=== PATIENT | male | born 1940 | race African-American/Black ===

== ENCOUNTER 2016-12-11 04:51 | Inpatient (IN) | payer MEDICARE, MEDICAID ==
[~2016-12-11] VITALS: Ht 172.7 cm; Wt 65.5 kg
[2016-12-11] VITALS (16 sets, daily range): BP systolic 114–224; BP diastolic 68–117
[~2016-12-11 04:51] MED LIST: AMLO1CAP PO; ASPI325T2 PO; CARV6.2548 PO; CINA30 PO; CLON0.3T PO; DIPH25CA83 PO; FURO80TA3 PO; HYDR-4134 PO; HYDR-519 PO; PANT40TA4 PO
[2016-12-11 05:44] LABS: BASOPHILS % 0.6 % (0.0-2.0); EOSINOPHILS % 1.2 % (0.0-5.0); HEMOGLOBIN. 9.9 g/dL (14.0-18.0); MEAN CORPUSCULAR HEMOGLOBIN 28.2 pg (28.0-32.0); MEAN CORPUSCULAR HGB CONC 31.9 g/dL (31.0-37.0); MEAN CORPUSCULAR VOLUME 88.3 fL (80.0-94.0); MEAN PLATELET VOLUME 8.7 fl (7.4-10.4); MONOCYTES % 6.1 % (2.0-8.0); NEUTROPHILS % 82.1 % (40.0-76.0); PLATELET 283 x1000/uL (130-400); RED BLOOD CELL COUNT 3.51 mill/uL (4.7-6.1); RED CELL DISTRIBUTION WIDTH 17.4 % (11.6-14.6); WHITE BLOOD COUNT 6.2 x1000/uL (4.5-11.0)
[2016-12-11 06:03] LABS: CALCIUM 8.9 mg/dL (8.5-10.1); TROPONIN I 0.1 ng/mL (0.00-0.04)
[2016-12-11] MEDS ORDERED: DIPHENHYDRAMINE 50MG/ML VIAL IV ONE (07:15)
[2016-12-11] MEDS ORDERED: DIPHENHYDRAMINE 50MG/ML VIAL ONE (07:22)
[2016-12-11] MEDS ORDERED: IPRATROPIUM/ALBUTEROL 0.5-3(2.5)MG/3ML NEB HHN PRN (07:45)
[2016-12-11 08:08] LABS: BG BASE EXCESS -6.6 mmol/L (-2.0-2.0); BG CARBOXYHEMOGLOBIN 0.7 % (0.5-1.5); BG DEOXYHEMOGLOBIN 10.7 % (0.0-5.0); BG FRACTION INSPIRED OXYGEN 44; BG METHEMOGLOBIN 0.2 % (0.0-1.5); BG OXYGEN SATURATION 89.2 % (92.0-98.5); BG OXYHEMOGLOBIN 88.4 % (94.0-97.0); BG PCO2 27.7 mmHg (35.0-45.0); BG PH 7.405 (7.350-7.450); BG PO2 62.1 mmHg (75.0-100.0); BG SAMPLE SITE RIGHT BRACHIAL; BG TOTAL HEMOGLOBIN 10.1 g/dL (12.0-18.0); BG VENT MODE NASAL CANNULA
[2016-12-11] MEDS ORDERED: GUAIFENESIN 200MG/10ML SUGAR FREE UDC PO PRN (10:00)
[2016-12-11] MEDS ORDERED: DOCUSATE SODIUM 100MG CAPSULE PO PRN (10:00)
[2016-12-11] MEDS: FUROSEMIDE 80MG TABLET PO SCH (10:00)
[2016-12-11] MEDS ORDERED: ACETAMINOPHEN 325MG TABLET PO PRN (10:00)
[2016-12-11] MEDS: AMLODIPINE 10MG TABLET PO SCH (10:00)
[2016-12-11] MEDS ORDERED: IPRATROPIUM/ALBUTEROL 0.5-3(2.5)MG/3ML NEB INH PRN (10:00)
[2016-12-11] MEDS: DIPHENHYDRAMINE 50MG/ML VIAL IV PRN ×4 (10:46→22:59)
[2016-12-11] MEDS: HYDRALAZINE HCL 50MG TABLET PO SCH ×2 (13:53→21:30)
[2016-12-11] MEDS: ENOXAPARIN 30MG/0.3ML SYR SUBCUT SCH (13:55)
[2016-12-11] MEDS: CLONIDINE 0.1MG TABLET PO PRN ×2 (13:55→18:49)
[2016-12-11] MEDS: BENAZEPRIL 20MG TABLET PO SCH (17:09)
[2016-12-11] MEDS: ONDANSETRON HCL 4MG/2ML VIAL IV PRN (20:11)
[2016-12-11] MEDS: HYDROCODONE/ACETAMINOPHEN 5/325MG TABLET PO PRN (20:12)
[2016-12-11] MEDS: CARVEDILOL 12.5MG TABLET PO SCH (20:13)
[2016-12-11] MEDS: IPRATROPIUM/ALBUTEROL 0.5-3(2.5)MG/3ML NEB HHN SCH (20:50)
[2016-12-11] MEDS ORDERED: CARVEDILOL 6.25 MG TABLET PO SCH (21:00)
[2016-12-12] VITALS (17 sets, daily range): BP systolic 136–188; BP diastolic 57–101
[2016-12-12] MEDS: IPRATROPIUM/ALBUTEROL 0.5-3(2.5)MG/3ML NEB HHN SCH ×4 (00:29→20:55)
[2016-12-12] MEDS: CLONIDINE 0.1MG TABLET PO PRN (01:56)
[2016-12-12] MEDS: HYDRALAZINE HCL 50MG TABLET PO SCH ×3 (05:17→20:13)
[2016-12-12] MEDS: DIPHENHYDRAMINE 50MG/ML VIAL IV PRN (06:07)
[2016-12-12] MEDS: ONDANSETRON HCL 4MG/2ML VIAL IV PRN (06:07)
[2016-12-12 06:42] LABS: BASOPHILS % 0.9 % (0.0-2.0); EOSINOPHILS % 3.2 % (0.0-5.0); LYMPHOCYTES % 14.7 % (20.0-50.0); MEAN CORPUSCULAR HEMOGLOBIN 28.5 pg (28.0-32.0); MEAN CORPUSCULAR HGB CONC 32.2 g/dL (31.0-37.0); MEAN CORPUSCULAR VOLUME 88.5 fL (80.0-94.0); MEAN PLATELET VOLUME 8.6 fl (7.4-10.4); MONOCYTES % 9.1 % (2.0-8.0); NEUTROPHILS % 72.1 % (40.0-76.0); PLATELET 222 x1000/uL (130-400); RED BLOOD CELL COUNT 3.16 mill/uL (4.7-6.1); RED CELL DISTRIBUTION WIDTH 17.2 % (11.6-14.6); WHITE BLOOD COUNT 4.5 x1000/uL (4.5-11.0)
[2016-12-12] MEDS: HYDROCODONE/ACETAMINOPHEN 5/325MG TABLET PO PRN (06:53)
[2016-12-12 07:49] LABS: ALANINE AMINOTRANSFERASE 8 IU/L (13-61); ALBUMIN 2.8 g/dL (3.4-5.0); ANION GAP 17; CALCIUM 8.9 mg/dL (8.5-10.1); CARBON DIOXIDE 25 mEq/L (21-32); CHLORIDE 104 mEq/L (98-107); INDEX HEMOLYSI 1 (1-3); INDEX ICTERIC 1 (1-4); INDEX LIPEMIC 1 (1-3); UREA NITROGEN BLOOD 55 mg/dL (7-21); eGFR 8 mL/min (>60)
[2016-12-12] MEDS: CARVEDILOL 12.5MG TABLET PO SCH ×2 (09:00→20:13)
[2016-12-12] MEDS: BENAZEPRIL 20MG TABLET PO SCH ×2 (09:00→17:01)
[2016-12-12] MEDS: AMLODIPINE 10MG TABLET PO SCH (09:00)
[2016-12-12] MEDS: FUROSEMIDE 80MG TABLET PO SCH (09:00)
[2016-12-12] MEDS: FOLIC ACID/VITAMIN B COMP W-C TABLET PO SCH (09:22)
[2016-12-12] MEDS: ENOXAPARIN 30MG/0.3ML SYR SUBCUT SCH (09:22)
[2016-12-13] VITALS (13 sets, daily range): BP systolic 83–188; BP diastolic 58–88
[2016-12-13] MEDS: IPRATROPIUM/ALBUTEROL 0.5-3(2.5)MG/3ML NEB HHN SCH ×4 (02:31→21:23)
[2016-12-13] MEDS: HYDRALAZINE HCL 50MG TABLET PO SCH ×3 (06:04→21:00)
[2016-12-13 06:21] LABS: CALCIUM 8.6 mg/dL (8.5-10.1)
[2016-12-13 06:42] LABS: BASOPHILS % 0.9 % (0.0-2.0); HEMATOCRIT. 26.8 % (42.0-52.0); HEMOGLOBIN. 8.6 g/dL (14.0-18.0); LYMPHOCYTES % 13.6 % (20.0-50.0); MEAN CORPUSCULAR HEMOGLOBIN 28.5 pg (28.0-32.0); MEAN CORPUSCULAR HGB CONC 31.9 g/dL (31.0-37.0); MEAN CORPUSCULAR VOLUME 89.4 fL (80.0-94.0); MEAN PLATELET VOLUME 8.5 fl (7.4-10.4); MONOCYTES % 10.9 % (2.0-8.0); NEUTROPHILS % 69.6 % (40.0-76.0); PLATELET 198 x1000/uL (130-400); RED CELL DISTRIBUTION WIDTH 17.2 % (11.6-14.6); WHITE BLOOD COUNT 5.6 x1000/uL (4.5-11.0)
[2016-12-13] MEDS: DIPHENHYDRAMINE 50MG/ML VIAL IV PRN (06:48)
[2016-12-13] MEDS: ENOXAPARIN 30MG/0.3ML SYR SUBCUT SCH (08:47)
[2016-12-13] MEDS: FOLIC ACID/VITAMIN B COMP W-C TABLET PO SCH (08:47)
[2016-12-13] MEDS: FUROSEMIDE 80MG TABLET PO SCH (08:47)
[2016-12-13] MEDS: HYDROCODONE/ACETAMINOPHEN 5/325MG TABLET PO PRN (08:48)
[2016-12-13] MEDS: CARVEDILOL 12.5MG TABLET PO SCH ×2 (08:48→20:57)
[2016-12-13] MEDS: AMLODIPINE 10MG TABLET PO SCH (08:48)
[2016-12-13] MEDS: BENAZEPRIL 20MG TABLET PO SCH ×2 (08:48→18:05)
[2016-12-13] MEDS: CLONIDINE 0.1MG TABLET PO PRN ×2 (12:22→23:49)
[2016-12-13] MEDS: ONDANSETRON HCL 4MG/2ML VIAL IV PRN (12:38)
[2016-12-14] VITALS (13 sets, daily range): BP systolic 115–191; BP diastolic 54–84
[2016-12-14] MEDS: IPRATROPIUM/ALBUTEROL 0.5-3(2.5)MG/3ML NEB HHN SCH ×5 (02:09→20:06)
[2016-12-14] MEDS ORDERED: HYDRALAZINE HCL 50MG TABLET PO SCH (06:00)
[2016-12-14] MEDS: HYDRALAZINE HCL 25MG TABLET PO SCH ×3 (06:44→21:23)
[2016-12-14] MEDS: CARVEDILOL 12.5MG TABLET PO SCH ×2 (08:07→21:23)
[2016-12-14] MEDS: BENAZEPRIL 20MG TABLET PO SCH ×2 (08:08→16:37)
[2016-12-14] MEDS: AMLODIPINE 10MG TABLET PO SCH (08:08)
[2016-12-14] MEDS: FUROSEMIDE 40MG TABLET PO SCH (08:08)
[2016-12-14] MEDS: ENOXAPARIN 30MG/0.3ML SYR SUBCUT SCH (08:43)
[2016-12-14] MEDS: FOLIC ACID/VITAMIN B COMP W-C TABLET PO SCH (08:43)
[2016-12-14] MEDS: DIPHENHYDRAMINE 50MG/ML VIAL IV PRN ×2 (08:52→17:20)
[2016-12-14] MEDS ORDERED: FUROSEMIDE 80MG TABLET PO SCH (10:00)
[2016-12-14] MEDS: CLONIDINE 0.1MG TABLET PO PRN (17:20)
[2016-12-15] VITALS (14 sets, daily range): BP systolic 143–189; BP diastolic 57–80
[2016-12-15] MEDS: CLONIDINE 0.1MG TABLET PO PRN (00:20)
[2016-12-15] MEDS: IPRATROPIUM/ALBUTEROL 0.5-3(2.5)MG/3ML NEB HHN SCH ×3 (02:10→14:41)
[2016-12-15] MEDS: HYDRALAZINE HCL 25MG TABLET PO SCH ×2 (05:49→13:34)
[2016-12-15] MEDS: AMLODIPINE 10MG TABLET PO SCH (08:43)
[2016-12-15] MEDS: FOLIC ACID/VITAMIN B COMP W-C TABLET PO SCH (08:43)
[2016-12-15] MEDS: FUROSEMIDE 40MG TABLET PO SCH (08:44)
[2016-12-15] MEDS: BENAZEPRIL 20MG TABLET PO SCH ×2 (08:44→17:17)
[2016-12-15] MEDS: HYDROCODONE/ACETAMINOPHEN 5/325MG TABLET PO PRN ×2 (08:44→15:59)
[2016-12-15] MEDS: CARVEDILOL 12.5MG TABLET PO SCH (08:45)
[2016-12-15] MEDS: ENOXAPARIN 30MG/0.3ML SYR SUBCUT SCH (08:45)
== END 2016-12-15 18:26 | DRG 291 ==
LOC: ER 04:55 → 5EST 07:46 → ER 09:10
PROVIDERS: ADMIT Hospitalist; ATTEND Hospitalist
PROC: 5A09357 Assistance with Respiratory Ventilation, Less than 24 Consecutive Hours, Continuous Positive Airway Pressure (ICD-10-PCS; principal; 2016-12-11)
PROC: 5A1D60Z (ICD-10-PCS; 2016-12-11)
DX: I13.2 Hypertensive heart and chronic kidney disease with heart failure and with stage 5 chronic kidney disease, or end stage renal disease (principal); I50.33 Acute on chronic diastolic (congestive) heart failure; J96.01 Acute respiratory failure with hypoxia; N18.6 End stage renal disease; E44.0 Moderate protein-calorie malnutrition; D63.1 Anemia in chronic kidney disease; I42.9 Cardiomyopathy, unspecified; E87.5 Hyperkalemia; J44.9 Chronic obstructive pulmonary disease, unspecified; H91.90 Unspecified hearing loss, unspecified ear; E11.22 Type 2 diabetes mellitus with diabetic chronic kidney disease; Z99.2 Dependence on renal dialysis; Z82.49 Family history of ischemic heart disease and other diseases of the circulatory system; Z86.73 Personal history of transient ischemic attack (TIA), and cerebral infarction without residual deficits; Z79.899 Other long term (current) drug therapy; Z79.82 Long term (current) use of aspirin; Z68.22 Body mass index [BMI] 22.0-22.9, adult; Z91.15 Patient's noncompliance with renal dialysis; Z28.21 Immunization not carried out because of patient refusal
CPT/HCPCS: 36415; 36600; 71010; 80048; 80053; 82375; 82805; 83605; 84484; 85025; 87040; 93005; 93970; 94640; 94660; 94664; 96374; 97162; 97166; 99285; A6261; J1200; J1650; J2405; J7030; J7620

== ENCOUNTER 2017-03-17 04:48 | Inpatient (IN) | payer MEDICARE, MEDICAID ==
[~2017-03-17] VITALS: Ht 182.9 cm; Wt 57.2 kg
[~2017-03-17 04:48] MED LIST changes: +ASPI-986 PO; -ASPI325T2 PO
[2017-03-17 06:22] LABS: EOSINOPHILS % 3.2 % (0.0-5.0); HEMATOCRIT. 41.5 % (42.0-52.0); HEMOGLOBIN. 13.3 g/dL (14.0-18.0); LYMPHOCYTES % 13.1 % (20.0-50.0); MEAN CORPUSCULAR HEMOGLOBIN 28.3 pg (28.0-32.0); MEAN CORPUSCULAR VOLUME 88.2 fL (80.0-94.0); MEAN PLATELET VOLUME 8.5 fl (7.4-10.4); MONOCYTES % 13.5 % (2.0-8.0); NEUTROPHILS % 69.2 % (40.0-76.0); PLATELET 236 x1000/uL (130-400); RED BLOOD CELL COUNT 4.71 mill/uL (4.7-6.1); RED CELL DISTRIBUTION WIDTH 16.5 % (11.6-14.6)
[2017-03-17 06:31] LABS: INR 1.1; PARTIAL THROMBOPLASTIN TIME 31.7 sec (24.0-34.0); PROTHROMBIN TIME 11.9 sec
[2017-03-17 06:47] LABS: CARBON DIOXIDE 23 mEq/L (21-32); CHLORIDE 98 mEq/L (98-107); TROPONIN I 0.09 ng/mL (0.00-0.04)
[2017-03-17] MEDS ORDERED: NA PHOS,M-B/NA PHOS,DI-BA ENEMA 118ML PR PRN (11:00)
[2017-03-17] MEDS ORDERED: IPRATROPIUM/ALBUTEROL 0.5-3(2.5)MG/3ML NEB INH PRN (11:00)
[2017-03-17] MEDS ORDERED: DOCUSATE SODIUM 100MG CAPSULE PO PRN (11:00)
[2017-03-17] MEDS ORDERED: MAGNESIUM/ALUMINUM HYDROXIDE/SIMETHICONE 30ML UDC PO PRN (11:00)
[2017-03-17] MEDS ORDERED: GUAIFENESIN 200MG/10ML SUGAR FREE UDC PO PRN (11:00)
[2017-03-17] MEDS ORDERED: HYDROCODONE/ACETAMINOPHEN 10/325MG TABLET PO PRN ×2 (11:00→23:00)
[2017-03-17] MEDS ORDERED: ONDANSETRON HCL 4MG/2ML VIAL IV PRN (11:00)
[2017-03-17] MEDS ORDERED: LORAZEPAM 2MG/ML CPJ IV PRN (11:00)
[2017-03-17] MEDS ORDERED: ACETAMINOPHEN 325MG TABLET PO PRN (11:00)
[2017-03-17] MEDS ORDERED: DIPHENHYDRAMINE 50MG/ML VIAL IV PRN (11:00)
[2017-03-17] MEDS: CLONIDINE 0.1MG TABLET PO PRN ×2 (12:18→18:51)
[2017-03-17] MEDS ORDERED: CEFAZOLIN 1000MG PREMIX 50 ML IV ONE (13:46)
[2017-03-17] MEDS ORDERED: FENTANYL CITRATE/PF 50MCG/ML 2ML VIAL ONE (13:47)
[2017-03-17] MEDS ORDERED: SODIUM BICARBONATE 4% (2.4MEQ) 5ML VIAL IV ONE (13:47)
[2017-03-17] MEDS ORDERED: LIDOCAINE HCL 1% 20ML VIAL (Pyxis) INJ ONE (13:47)
[2017-03-17] MEDS ORDERED: HEPARIN 1000 UNITS/ML 10ML ONE (13:47)
[2017-03-17] MEDS ORDERED: HEPARIN 1,000 UNITS PREMIX 0 ML IV ONE (13:48)
[2017-03-17] MEDS ORDERED: HYDROMORPHONE HCL/PF 2MG/ML CPJ IV PRN (15:00)
[2017-03-17 17:28] VITALS: BP 199/85
[2017-03-17 17:30] VITALS: BP 190/89
[2017-03-17 17:53] LABS: TROPONIN I 0.07 ng/mL (0.00-0.04)
[2017-03-17] MEDS: ENOXAPARIN 30MG/0.3ML SYR SUBCUT SCH (18:32)
[2017-03-17 20:00] VITALS: BP 154/77
[2017-03-17] MEDS ORDERED: AMLO10TA80 PO (22:12)
[2017-03-17] MEDS ORDERED: CINA30 PO (22:44)
[2017-03-17] MEDS ORDERED: ASPI-986 PO (22:44)
[2017-03-17] MEDS ORDERED: CLON0.3T PO (22:44)
[2017-03-17] MEDS ORDERED: DIPH25CA83 PO (22:44)
[2017-03-17] MEDS ORDERED: DIPHENHYDRAMINE 25MG CAPSULE PO SCH (22:45)
[2017-03-17] MEDS ORDERED: FURO80TA3 PO (22:51)
[2017-03-18] VITALS (7 sets, daily range): BP systolic 116–169; BP diastolic 44–89
[2017-03-18 07:21] LABS: HEMATOCRIT. 38.9 % (42.0-52.0); HEMOGLOBIN. 12.4 g/dL (14.0-18.0); MEAN CORPUSCULAR HEMOGLOBIN 27.9 pg (28.0-32.0); MEAN CORPUSCULAR VOLUME 87.3 fL (80.0-94.0); MEAN PLATELET VOLUME 8.7 fl (7.4-10.4); PLATELET 219 x1000/uL (130-400); RED BLOOD CELL COUNT 4.46 mill/uL (4.7-6.1); RED CELL DISTRIBUTION WIDTH 16.3 % (11.6-14.6)
[2017-03-18 07:28] LABS: CHLORIDE 103 mEq/L (98-107)
[2017-03-18 08:08] LABS: CARBON DIOXIDE 23 mEq/L (21-32); HDL CHOLESTEROL 43 mg/dL (40-59); LDL CHOLESTEROL 91 mg/dL (5-100); T4 FREE 1.12 ng/dL (0.76-1.46)
[2017-03-18] MEDS: HYDRALAZINE HCL 50MG TABLET PO SCH ×3 (09:00→19:53)
[2017-03-18] MEDS: CLONIDINE 0.3MG TABLET PO SCH ×3 (09:00→17:00)
[2017-03-18] MEDS: CARVEDILOL 6.25 MG TABLET PO SCH ×2 (11:06→17:00)
[2017-03-18] MEDS: ASPIRIN 325MG TABLET PO SCH (11:06)
[2017-03-18] MEDS: FUROSEMIDE 80MG TABLET PO SCH (11:07)
[2017-03-18] MEDS: PANTOPRAZOLE 40MG DR TABLET PO SCH (11:07)
[2017-03-18] MEDS: AMLODIPINE 10MG TABLET PO SCH (11:07)
[2017-03-18] MEDS: CINACALCET HCL 30MG TABLET PO SCH (11:08)
[2017-03-18 13:02] LABS: PLATELET ESTIMATE NORMAL
[2017-03-18] MEDS: DIPHENHYDRAMINE 25MG CAPSULE PO SCH (19:53)
[2017-03-18] MEDS: ENOXAPARIN 30MG/0.3ML SYR SUBCUT SCH (19:53)
[2017-03-19 04:00] VITALS: BP 135/84
[2017-03-19 05:45] LABS: BASOPHILS % 1.1 % (0.0-2.0); HEMATOCRIT. 34.7 % (42.0-52.0); LYMPHOCYTES % 22.6 % (20.0-50.0); MEAN CORPUSCULAR HEMOGLOBIN 27.9 pg (28.0-32.0); MEAN PLATELET VOLUME 8.7 fl (7.4-10.4); MONOCYTES % 13.7 % (2.0-8.0); NEUTROPHILS % 57.6 % (40.0-76.0); PLATELET 193 x1000/uL (130-400); RED BLOOD CELL COUNT 3.94 mill/uL (4.7-6.1); RED CELL DISTRIBUTION WIDTH 16.3 % (11.6-14.6)
[2017-03-19 08:00] VITALS: BP 154/84
[2017-03-19] MEDS: CARVEDILOL 6.25 MG TABLET PO SCH ×2 (09:00→17:00)
[2017-03-19] MEDS: PANTOPRAZOLE 40MG DR TABLET PO SCH (09:00)
[2017-03-19] MEDS: ASPIRIN 325MG TABLET PO SCH (09:00)
[2017-03-19] MEDS: CLONIDINE 0.3MG TABLET PO SCH ×2 (09:00→19:54)
[2017-03-19] MEDS: HYDRALAZINE HCL 50MG TABLET PO SCH ×2 (09:00→19:54)
[2017-03-19] MEDS: FUROSEMIDE 80MG TABLET PO SCH (09:00)
[2017-03-19] MEDS: AMLODIPINE 10MG TABLET PO SCH (09:00)
[2017-03-19] MEDS: CINACALCET HCL 30MG TABLET PO SCH (09:00)
[2017-03-19 12:00] VITALS: BP 174/103
[2017-03-19 16:00] VITALS: BP 185/75
[2017-03-19] MEDS: DIPHENHYDRAMINE 25MG CAPSULE PO SCH (16:47)
[2017-03-19] MEDS: ENOXAPARIN 30MG/0.3ML SYR SUBCUT SCH (19:55)
[2017-03-19 20:00] VITALS: BP 140/68
[2017-03-20] VITALS: BP 120/72
[2017-03-20 04:00] VITALS: BP 157/78
[2017-03-20 08:05] VITALS: BP 132/46
[2017-03-20] MEDS: CINACALCET HCL 30MG TABLET PO SCH (09:10)
[2017-03-20] MEDS: PANTOPRAZOLE 40MG DR TABLET PO SCH (09:10)
[2017-03-20] MEDS: FUROSEMIDE 80MG TABLET PO SCH (09:10)
[2017-03-20] MEDS: ASPIRIN 325MG TABLET PO SCH (09:10)
[2017-03-20] MEDS: CARVEDILOL 6.25 MG TABLET PO SCH (09:11)
[2017-03-20] MEDS: CLONIDINE 0.3MG TABLET PO SCH (09:11)
[2017-03-20] MEDS: HYDRALAZINE HCL 50MG TABLET PO SCH (09:11)
[2017-03-20] MEDS: AMLODIPINE 10MG TABLET PO SCH (09:12)
[2017-03-20 10:26] VITALS: BP 132/46
[2017-03-20 12:00] VITALS: BP 125/65
== END 2017-03-20 13:10 | disposition home or self-care (01) | DRG 314 ==
LOC: ER 04:49 → 6WST 10:42 → EDBEDREQ 10:48 → CANRESERV 11:41 → ENRESERV 11:41 → 6WST 17:06
PROVIDERS: ADMIT Internal Medicine; ATTEND Internal Medicine
PROC: 5A1D60Z (ICD-10-PCS; principal; 2017-03-17)
DX: T82.510A Breakdown (mechanical) of surgically created arteriovenous fistula, initial encounter (principal); E43 Unspecified severe protein-calorie malnutrition; N18.6 End stage renal disease; Z68.1 Body mass index [BMI] 19.9 or less, adult; I13.11 Hypertensive heart and chronic kidney disease without heart failure, with stage 5 chronic kidney disease, or end stage renal disease; J84.9 Interstitial pulmonary disease, unspecified; E87.5 Hyperkalemia; E87.70 Fluid overload, unspecified; F17.200 Nicotine dependence, unspecified, uncomplicated; G89.4 Chronic pain syndrome; I25.10 Atherosclerotic heart disease of native coronary artery without angina pectoris; J45.909 Unspecified asthma, uncomplicated; M19.90 Unspecified osteoarthritis, unspecified site; Y71.2 Prosthetic and other implants, materials and accessory cardiovascular devices associated with adverse incidents; J44.9 Chronic obstructive pulmonary disease, unspecified; T82.590A Other mechanical complication of surgically created arteriovenous fistula, initial encounter; Y83.9 Surgical procedure, unspecified as the cause of abnormal reaction of the patient, or of later complication, without mention of misadventure at the time of the procedure; Y92.89 Other specified places as the place of occurrence of the external cause; Z91.19 Patient's noncompliance with other medical treatment and regimen; Z99.2 Dependence on renal dialysis; Z79.899 Other long term (current) drug therapy; Z79.82 Long term (current) use of aspirin
CPT/HCPCS: 36415; 71010; 80048; 80053; 80061; 83690; 84439; 84443; 84484; 85025; 85610; 85730; 93005; 93970; 97162; 97166; 99285; 99406; A6261; J0690; J1200; J1644; J1650; J3010; J3490; J7030; Q0163

== ENCOUNTER 2017-04-05 05:14 | Inpatient (IN) | payer MEDICARE, MEDICAID ==
[~2017-04-05] VITALS: Ht 180.3 cm; Wt 52.2 kg
[~2017-04-05 05:14] MED LIST changes: +AMLO10TA80 PO
[2017-04-05] MEDS ORDERED: MORPHINE SULFATE 2 MG/ML CPJ (NOT FOR IM USE) IV ONE (06:30)
[2017-04-05] MEDS ORDERED: CLONIDINE 0.2MG TABLET PO ONE (06:30)
[2017-04-05 07:37] LABS: BASOPHILS % 1.5 % (0.0-2.0); EOSINOPHILS % 3.7 % (0.0-5.0); HEMATOCRIT. 34.7 % (42.0-52.0); HEMOGLOBIN. 11.3 g/dL (14.0-18.0); LYMPHOCYTES % 13.4 % (20.0-50.0); MEAN CORPUSCULAR HEMOGLOBIN 28.2 pg (28.0-32.0); MEAN CORPUSCULAR VOLUME 86.5 fL (80.0-94.0); MEAN PLATELET VOLUME 8.2 fl (7.4-10.4); MONOCYTES % 10.4 % (2.0-8.0); PLATELET 204 x1000/uL (130-400); RED BLOOD CELL COUNT 4.01 mill/uL (4.7-6.1); RED CELL DISTRIBUTION WIDTH 15.7 % (11.6-14.6)
[2017-04-05 07:46] LABS: INR 1.1; PARTIAL THROMBOPLASTIN TIME 31.2 sec (24.0-34.0); PROTHROMBIN TIME 11.3 sec
[2017-04-05 07:52] LABS: TROPONIN I 0.07 ng/mL (0.00-0.04)
[2017-04-05] MEDS ORDERED: ASPIRIN 325MG EC TABLET PO ONE (08:15)
[2017-04-05] MEDS ORDERED: NITROGLYCERIN 0.4MG TABLET SL SL PRN (11:15)
[2017-04-05] MEDS ORDERED: IPRATROPIUM/ALBUTEROL 0.5-3(2.5)MG/3ML NEB INH PRN (11:15)
[2017-04-05] MEDS ORDERED: ACETAMINOPHEN 325MG TABLET PO PRN (11:15)
[2017-04-05] MEDS ORDERED: NA PHOS,M-B/NA PHOS,DI-BA ENEMA 118ML PR PRN (11:15)
[2017-04-05] MEDS ORDERED: TRAMADOL 50MG TABLET PO PRN (11:15)
[2017-04-05] MEDS ORDERED: CLONIDINE 0.1MG TABLET PO PRN (11:15)
[2017-04-05] MEDS ORDERED: GUAIFENESIN 200MG/10ML SUGAR FREE UDC PO PRN (11:15)
[2017-04-05] MEDS ORDERED: ZOLPIDEM TARTRATE 5MG TABLET PO PRN (11:15)
[2017-04-05] MEDS ORDERED: LORAZEPAM 2MG/ML CPJ IV PRN (11:15)
[2017-04-05] MEDS ORDERED: ONDANSETRON HCL 4MG/2ML VIAL IV PRN (11:15)
[2017-04-05] MEDS ORDERED: MAGNESIUM/ALUMINUM HYDROXIDE/SIMETHICONE 30ML UDC PO PRN (11:15)
[2017-04-05] MEDS ORDERED: DOCUSATE SODIUM 100MG CAPSULE PO PRN (11:15)
[2017-04-05] MEDS ORDERED: DIPHENHYDRAMINE 50MG/ML VIAL IV PRN (11:15)
[2017-04-05] MEDS ORDERED: SEVELAMER CARBONATE 800 MG TABLET PO SCH (13:00)
[2017-04-05] MEDS ORDERED: ETOMIDATE 2MG/ML 10ML VIAL IV ONE (13:07)
[2017-04-05] MEDS ORDERED: SUCCINYLCHOLINE CHLORIDE 200MG/10ML VIAL IV ONE (13:07)
[2017-04-05 14:45] VITALS: BP 174/64
[2017-04-05 14:56] VITALS: BP 174/64
[2017-04-05 16:00] VITALS: BP 125/76
[2017-04-05] MEDS: CARVEDILOL 3.125 MG TABLET PO SCH (18:00)
[2017-04-05 18:04] LABS: CREATINE KINASE MB FRACTION 2.9 ng/mL (0.5-3.6); TROPONIN I 0.08 ng/mL (0.00-0.04)
[2017-04-05 20:01] VITALS: BP 128/80
[2017-04-05] MEDS ORDERED: LISINOPRIL 20MG TABLET PO SCH (21:00)
[2017-04-05] MEDS: HYDRALAZINE HCL 50MG TABLET PO SCH (22:00)
[2017-04-06] VITALS (93 sets, daily range): BP systolic 63–139; BP diastolic 23–77
[2017-04-06 01:58] LABS: CREATINE KINASE MB FRACTION 4.1 ng/mL (0.5-3.6); TROPONIN I 0.19 ng/mL (0.00-0.04)
[2017-04-06] MEDS: HYDRALAZINE HCL 50MG TABLET PO SCH (06:00)
[2017-04-06] MEDS: CARVEDILOL 3.125 MG TABLET PO SCH (06:00)
[2017-04-06 07:39] LABS: CREATINE KINASE MB FRACTION 7.1 ng/mL (0.5-3.6)
[2017-04-06 08:01] LABS: TROPONIN I 0.6 ng/mL (0.00-0.04)
[2017-04-06] MEDS ORDERED: SODIUM CHLORIDE 0.9% 500 ML IV NR (08:15)
[2017-04-06] MEDS ORDERED: ASPIRIN 325MG EC TABLET PO SCH (09:00)
[2017-04-06] MEDS ORDERED: FOLIC ACID/VITAMIN B COMP W-C TABLET PO SCH (09:00)
[2017-04-06] MEDS ORDERED: ENOXAPARIN 30MG/0.3ML SYR SUBCUT SCH (09:00)
[2017-04-06] MEDS ORDERED: PANTOPRAZOLE SODIUM 40 MG/VIAL IV SCH (09:00)
[2017-04-06] MEDS ORDERED: NOREPINEPHRINE 16 MG in DEXT 5% WATER 234 ML IV PRN (09:15)
[2017-04-06 09:23] LABS: HEMATOCRIT 44.3 % (42.0-52.0); MEAN CORPUSCULAR HEMOGLOBIN 28.1 pg (28.0-32.0); MEAN CORPUSCULAR VOLUME 88.8 fL (80.0-94.0); PLATELET 283 x1000/uL (130-400); RED BLOOD CELL COUNT 4.99 mill/uL (4.7-6.1); RED CELL DISTRIBUTION WIDTH 16.1 % (11.6-14.6)
[2017-04-06] MEDS: PIPERACILLIN/TAZ 2.25G PREMIX 50 ML IV SCH ×2 (09:48→17:27)
[2017-04-06] MEDS: PANTOPRAZOLE 80 MG in SODIUM CHLORIDE 0.9% 100 ML IV SCH ×2 (09:48→19:51)
[2017-04-06 09:52] LABS: BG BASE EXCESS -17.7 mmol/L (-2.0-2.0); BG CARBOXYHEMOGLOBIN 0.3 % (0.5-1.5); BG DEOXYHEMOGLOBIN 1.4 % (0.0-5.0); BG FRACTION INSPIRED OXYGEN 99.8; BG METHEMOGLOBIN 0.3 % (0.0-1.5); BG OXYGEN SATURATION 98.6 % (92.0-98.5); BG PCO2 30.1 mmHg (35.0-45.0); BG PO2 180.8 mmHg (75.0-100.0); BG SAMPLE SITE RIGHT BRACHIAL; BG TOTAL HEMOGLOBIN 14.7 g/dL (12.0-18.0); BG VENT MODE MASK - NRB
[2017-04-06] MEDS ORDERED: VANCOMYCIN 1 G PREMIX 200 ML IV NR (10:00)
[2017-04-06] MEDS ORDERED: SODIUM BICARBONATE IV SCH ×2 (12:30→18:00)
[2017-04-06] MEDS ORDERED: DEXTROSE 5% IV SCH ×2 (12:30→18:00)
[2017-04-06] MEDS ORDERED: WATER IV SCH ×2 (12:30→18:00)
[2017-04-06] MEDS ORDERED: VANCOMYCIN 500 MG PREMIX 100 ML IV NR (13:00)
[2017-04-06 15:35] LABS: BG BASE EXCESS -23.1 mmol/L (-2.0-2.0); BG CARBOXYHEMOGLOBIN 0.7 % (0.5-1.5); BG DEOXYHEMOGLOBIN 2.7 % (0.0-5.0); BG FRACTION INSPIRED OXYGEN 28; BG HCO3 ACT 11.3 mmol/L (22.0-26.0); BG METHEMOGLOBIN 0.3 % (0.0-1.5); BG OXYGEN SATURATION 97.3 % (92.0-98.5); BG OXYHEMOGLOBIN 96.3 % (94.0-97.0); BG PH 6.845 (7.350-7.450); BG PO2 156.5 mmHg (75.0-100.0); BG SAMPLE SITE RIGHT BRACHIAL; BG TOTAL HEMOGLOBIN 13.5 g/dL (12.0-18.0); BG VENT MODE NASAL CANNULA
[2017-04-06] MEDS ORDERED: SODIUM BICARBONATE 8.4% 1 MEQ/ML 50ML SYR IV ONE ×2 (15:42→16:15)
[2017-04-06] MEDS ORDERED: DOPAMINE 800MG PREMIX 250 ML IV ONE (15:44)
[2017-04-06 16:08] LABS: HEMATOCRIT 42.4 % (42.0-52.0); HEMOGLOBIN 12.3 g/dL (14.0-18.0)
[2017-04-06] MEDS ORDERED: PROPOFOL 10MG/ML 100ML 100 ML IV PRN (16:30)
[2017-04-06 16:41] LABS: DIGOXIN < 0.1 ng/mL (0.9-2.0)
[2017-04-06] MEDS ORDERED: SODIUM POLYSTYRENE SULFONATE 15 G/60 ML BOT PO SCH (16:45)
[2017-04-06] MEDS ORDERED: SORBITOL 70% SOLN 30ML PO SCH (16:45)
[2017-04-06] MEDS ORDERED: CALCIUM GLUCONATE 100MG/ML 10ML VIAL IV ONE (16:45)
[2017-04-06] MEDS: DOPAMINE 800MG PREMIX 250 ML IV PRN ×2 (17:00→22:33)
[2017-04-06 17:15] LABS: BG CARBOXYHEMOGLOBIN 0.8 % (0.5-1.5); BG DEOXYHEMOGLOBIN 0.1 % (0.0-5.0); BG FRACTION INSPIRED OXYGEN 100; BG HCO3 ACT 10.7 mmol/L (22.0-26.0); BG METHEMOGLOBIN 0.2 % (0.0-1.5); BG OXYGEN SATURATION 99.9 % (92.0-98.5); BG OXYHEMOGLOBIN 98.9 % (94.0-97.0); BG PCO2 25.5 mmHg (35.0-45.0); BG PH 7.239 (7.350-7.450); BG PO2 385.2 mmHg (75.0-100.0); BG SAMPLE SITE RIGHT BRACHIAL; BG TIDAL VOLUME(mL) 500 mL; BG TOTAL HEMOGLOBIN 13.6 g/dL (12.0-18.0); BG VENT MODE VENT - A/C; BG VENT RATE 18 set
[2017-04-06] MEDS ORDERED: CALCIUM GLUCONATE 1000 MG in DEXTROSE 5% WATER 100 ML IV SCH (18:00)
[2017-04-06] MEDS ORDERED: CALCIUM CHLORIDE 1000 MG in DEXTROSE 5% WATER 100 ML IV SCH (18:00)
[2017-04-06] MEDS ORDERED: SODIUM BICARBONATE 150 MEQ in DEXTROSE 5% WATER 1,000 ML IV SCH (18:00)
[2017-04-06] MEDS ORDERED: DEXTROSE 50% WATER 50ML SYRINGE IV SCH (18:00)
[2017-04-06] MEDS ORDERED: INSULIN REGULAR (HUMULIN R) UD 100 UNITS/ML SYR IV SCH (18:00)
[2017-04-06] MEDS ORDERED: PHENYLEPHRINE 80 MG in DEXT 5% WATER 500 ML IV PRN (19:30)
[2017-04-06] MEDS ORDERED: PHENYLEPHRINE 80 MG in DEXT 5% WATER 496 ML IV PRN (19:30)
[2017-04-06 19:42] LABS: BETA HYDROXYBUTYRATE 0.2 mMol/L (0.0-0.3)
[2017-04-07] VITALS (13 sets, daily range): BP systolic 52–77; BP diastolic 31–43
[2017-04-07] MEDS: PIPERACILLIN/TAZ 2.25G PREMIX 50 ML IV SCH (01:58)
[2017-04-07] MEDS: DOPAMINE 800MG PREMIX 250 ML IV PRN (02:57)
[2017-04-07] MEDS ORDERED: BLOOD SUGAR DIAGNOSTIC STRIP TEST SCH (18:30)
== END 2017-04-07 08:39 | disposition expired | DRG 291 ==
LOC: ER 05:14 → 8WST 09:16 → EDBEDREQTM 09:17 → EDBEDREQ 09:17 → CANRESERV 10:39 → ENRESERV 10:39 → SUPCPDRO 11:01 → ENRESERV 13:44 → CVICU 04-06 08:25
PROVIDERS: ADMIT Internal Medicine; ATTEND Internal Medicine
PROC: 5A1D00Z (ICD-10-PCS; 2017-04-05)
PROC: 06HM33Z Insertion of Infusion Device into Right Femoral Vein, Percutaneous Approach (ICD-10-PCS; principal; 2017-04-06)
PROC: B54BZZA Ultrasonography of Right Lower Extremity Veins, Guidance (ICD-10-PCS; 2017-04-06)
PROC: 5A1935Z Respiratory Ventilation, Less than 24 Consecutive Hours (ICD-10-PCS; 2017-04-06)
PROC: 0BH17EZ Insertion of Endotracheal Airway into Trachea, Via Natural or Artificial Opening (ICD-10-PCS; 2017-04-06)
DX: I13.2 Hypertensive heart and chronic kidney disease with heart failure and with stage 5 chronic kidney disease, or end stage renal disease (principal); G93.40 Encephalopathy, unspecified; I50.33 Acute on chronic diastolic (congestive) heart failure; J96.00 Acute respiratory failure, unspecified whether with hypoxia or hypercapnia; N18.6 End stage renal disease; E46 Unspecified protein-calorie malnutrition; E87.0 Hyperosmolality and hypernatremia; E87.1 Hypo-osmolality and hyponatremia; E87.2 Acidosis; K92.1 Melena; Z68.1 Body mass index [BMI] 19.9 or less, adult; R57.0 Cardiogenic shock; Z66 Do not resuscitate; M19.90 Unspecified osteoarthritis, unspecified site; E87.5 Hyperkalemia; H91.90 Unspecified hearing loss, unspecified ear; I25.10 Atherosclerotic heart disease of native coronary artery without angina pectoris; D63.8 Anemia in other chronic diseases classified elsewhere; E78.00 Pure hypercholesterolemia, unspecified; J44.9 Chronic obstructive pulmonary disease, unspecified; Z96.651 Presence of right artificial knee joint; Z99.2 Dependence on renal dialysis; I25.2 Old myocardial infarction; Z95.5 Presence of coronary angioplasty implant and graft; Z99.81 Dependence on supplemental oxygen; Z79.82 Long term (current) use of aspirin; Z79.899 Other long term (current) drug therapy; Z87.891 Personal history of nicotine dependence; Z86.73 Personal history of transient ischemic attack (TIA), and cerebral infarction without residual deficits
CPT/HCPCS: 31500; 36415; 36569; 36600; 70450; 71010; 76937; 78580; 80048; 80076; 80162; 82010; 82270; 82375; 82550; 82553; 82805; 82962; 83735; 83880; 84132; 84484; 85014; 85018; 85025; 85027; 85379; 85610; 85730; 86850; 86870; 86900; 86920; 87040; 93005; 93306; 93970; 94002; 99285; A6261; C1893; C9113; G0482; J0330; J0610; J1265; J1815; J2270; J2370; J2543; J2704; J3370; J3490; J7030; J7040; J7050; J7060; J7070; J7620